=== PATIENT | male | born 1985 | race Caucasian/White ===

== ENCOUNTER 2016-08-13 15:36 | Emergency (ER) | payer OTHER ==
[~2016-08-13] VITALS: Ht 172.7 cm; Wt 81.8 kg
[~2016-08-13 15:36] MED LIST: LEVSIN 0.10.125 MG/T PO; LODINE500 MG PO; NEXIUM 20MG20 MG PO; NIZORAL CR 30GM TOP; NO HOME MEDICATIONS; NORCO 325 MG-51 TAB PO; PHENERGAN W/CO120 M1 PO; POLYMYXIN B/TRIMETH OU; ULTRAM 50MG TAB50 MG PO; VOLTAREN GEL 1%1 TU TP
[2016-08-13 15:38] VITALS: BP 139/78; TEMP 98.2
[2016-08-13] MEDS ORDERED: NORCO 325 MG-51 TAB PO ×2 (15:40→16:10)
[2016-08-13] MEDS ORDERED: ULTRAM 50MG TAB50 MG PO ×2 (15:40→16:10)
[2016-08-13 16:21] VITALS: PULSE 83
== END 2016-08-13 16:22 | disposition home or self-care (01) ==
LOC: COL.ER 15:36
DX: M79.622 Pain in left upper arm (principal)

== ENCOUNTER 2016-10-16 14:08 | Emergency (ER) | payer OTHER ==
[~2016-10-16] VITALS: Ht 172.7 cm; Wt 84.1 kg
[2016-10-16 14:16] VITALS: BP 129/64; PULSE 62; TEMP 98.7
== END 2016-10-16 16:10 | disposition home or self-care (01) ==
LOC: COL.ER 14:08
DX: Z48.811 Encounter for surgical aftercare following surgery on the nervous system (principal); Z48.01 Encounter for change or removal of surgical wound dressing

== ENCOUNTER → 2017-01-29 | Emergency (ER) | payer OTHER ==
[~2017-01-29] VITALS: Ht 175.3 cm; Wt 84.1 kg
[~2017-01-29] MED LIST changes: +FLEXERIL 1010 MG/TAB PO; +NEXIUM24HROTC PO
[2017-01-29 14:28] VITALS: BP 130/85; PULSE 57; TEMP 98
== END ==
LOC: COL.ER 14:20
DX: R10.31 Right lower quadrant pain (principal); Z53.21 Procedure and treatment not carried out due to patient leaving prior to being seen by health care provider

== ENCOUNTER 2017-02-02 07:48 | Emergency (ER) | payer OTHER ==
[~2017-02-02] VITALS: Ht 175.3 cm; Wt 84.5 kg
[~2017-02-02 07:48] MED LIST changes: -FLEXERIL 1010 MG/TAB PO; -NEXIUM24HROTC PO
[2017-02-02 07:53] VITALS: BP 131/82; TEMP 98.5
[2017-02-02 08:19] LABS: PH 7 (5-8); SQUAMOUS EPITHELIAL None Seen /hpf; URINE APPEARANCE Clear; URINE BACTERIA None Seen /hpf; URINE BILIRUBIN Negative (NEGATIVE); URINE BLOOD Negative (NEGATIVE); URINE COLOR Straw; URINE GLUCOSE Negative (NEGATIVE); URINE KETONE Negative (NEGATIVE); URINE RBC None Seen /hpf; URINE UROBILINOGEN Negative (NEGATIVE); URINE WBC None Seen /hpf
[2017-02-02 08:32] LABS: BASO # 0.1 (0.0-0.2); BASO % 1.1 % (0.0-2.0); EOS # 0.2 (0.0-0.7); EOS % 3.2 % (0-4.0); GRAN # 3.2 (1.4-6.5); GRAN % 42.6 % (42.2-75.2); HEMATOCRIT 42.2 % (42.0-52.0); LYMPH # 3.3 (1.2-3.4); LYMPH % 44.7 % (20.0-51.0); MEAN CELL VOLUME 89 fl (80.0-100.0); MEAN CORPUSCULAR HEMOGLOBIN 32 pg (27.0-31.0); MEAN CORPUSCULAR HGB CONC 36 g/dl (33.0-37.0); MEAN PLATELET VOLUME 11.8 fl (7.4-10.4); MONO # 0.6 (0.1-0.6); MONO % 8.3 % (1.7-9.3); PLATELET COUNT 213 K/mm3 (130-400); RED BLOOD COUNT 4.72 M/mm3 (4.20-5.60); REDCELL DISTRIBUTION WIDTH-CV 12.5 % (11.5-14.5); WHITE BLOOD COUNT 7.5 K/mm3 (4.8-10.8)
[2017-02-02] MEDS ORDERED: NEXIUM24HROTC PO (08:52)
[2017-02-02 08:58] LABS: ALBUMIN 4.3 gm/dL (3.5-5.0); BILIRUBIN,TOTAL 0.5 mg/dL (0.0-1.0); CALCIUM 9.2 mg/dL (8.4-10.2); CREATININE, serum 1.17 mg/dL (0.66-1.25); POTASSIUM 3.9 mmol/L (3.4-5.0); TOTAL PROTEIN 7.1 gm/dL (6.4-8.2)
[2017-02-02 09:55] VITALS: PULSE 61
== END 2017-02-02 09:55 | disposition home or self-care (01) ==
LOC: COL.ER 07:48
PROVIDERS: Emergency Medicine
DX: R10.84 Generalized abdominal pain (principal); R63.0 Anorexia; R11.0 Nausea; R29.898 Other symptoms and signs involving the musculoskeletal system
CPT/HCPCS: J1170; J1885; J2405; J7030

== ENCOUNTER 2017-02-22 05:52 | Emergency (ER) | payer OTHER ==
[~2017-02-22] VITALS: Ht 170.2 cm; Wt 82.7 kg
[~2017-02-22 05:52] MED LIST changes: +NEXIUM24HROTC PO
[2017-02-22 05:55] VITALS: BP 123/81; PULSE 76; TEMP 98.4
[2017-02-22] MEDS ORDERED: FLEXERIL 1010 MG/TAB PO (06:15)
== END 2017-02-22 06:28 | disposition home or self-care (01) ==
LOC: COL.ER 05:52
DX: M54.5 Low back pain (principal); G89.29 Other chronic pain

== ENCOUNTER → 2018-08-14 | Outpatient (CLI) | payer OTHER ==
[~2018-08-14] MED LIST changes: +FLEXERIL 1010 MG/TAB PO
== END ==
LOC: COL.RAD 12:30
DX: M19.011 Primary osteoarthritis, right shoulder (principal); S43.491A Other sprain of right shoulder joint, initial encounter

== ENCOUNTER 2019-03-12 22:01 | Emergency (ER) | payer OTHER ==
[~2019-03-12] VITALS: Ht 172.7 cm; Wt 81.8 kg
[2019-03-12 22:13] VITALS: BP 144/95; TEMP 98.2
[2019-03-13 00:16] VITALS: PULSE 82
== END 2019-03-13 00:17 | disposition home or self-care (01) ==
LOC: COL.ER 22:01
DX: S01.81XA Laceration without foreign body of other part of head, initial encounter (principal); W22.8XXA Striking against or struck by other objects, initial encounter; Y92.009 Unspecified place in unspecified non-institutional (private) residence as the place of occurrence of the external cause

== ENCOUNTER 2019-05-18 14:24 | Emergency (ER) | payer OTHER ==
[~2019-05-18] VITALS: Ht 175.3 cm; Wt 81.8 kg
[2019-05-18 14:28] VITALS: BP 137/82; TEMP 97.8
[2019-05-18 16:04] VITALS: PULSE 80
== END 2019-05-18 15:48 | disposition home or self-care (01) ==
LOC: COL.ER 14:24
DX: S60.012A Contusion of left thumb without damage to nail, initial encounter (principal); Z87.891 Personal history of nicotine dependence; W22.8XXA Striking against or struck by other objects, initial encounter; Y92.009 Unspecified place in unspecified non-institutional (private) residence as the place of occurrence of the external cause

== ENCOUNTER → 2020-02-07 | Outpatient (CLI) | payer OTHER | LOC: ZCOL.LAB 16:01 | DX: R05 Cough (principal); R53.83 Other fatigue; Z20.828 Contact with and (suspected) exposure to other viral communicable diseases ==